=== PATIENT | female | born 1985 | race Caucasian/White ===

== ENCOUNTER 2023-01-25 18:00 | Emergency (ER) | payer OTHER ==
[~2023-01-25] VITALS: Ht 152.4 cm; Wt 46.3 kg
[2023-01-25 18:12] VITALS: BP 137/76
[2023-01-25] MEDS ORDERED: MECLIZINE 25 MG TAB PO ONE (18:25)
--- NOTE | 2023-01-25 18:50 | NUR ---
PT C/O DIZZINESS, LT SIDE HEADACHE AND TENTION SINCE THIS AM. UA COLLECTED. SAFETY MAINTAINED.
--- NOTE | 2023-01-25 19:00 | NUR ---
MD Campos at bedside assessing pt.
--- NOTE | 2023-01-25 19:39 | NUR ---
Patient discharged with v/s stable. Written and verbal after care instructions given and explained. Patient verbalized understanding. Ambulatory with steady gait. All questions addressed prior to discharge. Advised to follow up with PMD.
[2023-01-25 19:40] VITALS: BP 131/74
[2023-01-25 19:44] LABS: BILIRUBIN,URINE NEGATIVE (NEGATIVE); BLOOD, URINE 3+ (NEGATIVE); COLOR,URINE YELLOW (YELLOW); LEUKOCYTE ESTERASE ,URINE 1+ (NEGATIVE); NITRITE, URINE POSITIVE (NEGATIVE); UGLUCOSE NEGATIVE (NEGATIVE)
[2023-01-25 19:48] LABS: APPEARANCE,URINE HAZY (CLEAR)
[2023-01-25 20:01] LABS: RBC,URINE 0-5 /HPF (0-5)
[2023-01-28] MEDS ORDERED: CEPH-588 PO (16:55)
--- NOTE | 2023-01-28 17:41 | NUR ---
LEFT MESSAGE ON PT.'S PHONE MESSAGE TO ER BACK FOR FURTHER INSTRUCTIONS ABOUT A NEW RX SENT TO PT.'S PHARMACY
== END 2023-01-25 19:39 | disposition home or self-care (01) ==
LOC: MED 18:00
DX: F41.9 Anxiety disorder, unspecified (principal)
CPT/HCPCS: 81001; 87086; 99283; J8597